=== PATIENT | female | born 1980 | race Hispanic/Latino ===

== ENCOUNTER 2017-12-23 23:00 | Emergency (ER) | payer MEDICAID, OTHER ==
[2017-12-23] MEDS ORDERED: ASPIRIN 325 MG TABLET ONE (23:34)
[2017-12-23 23:38] LABS: BASOPHILS % (AUTO) 0.7 % (0.0-5.0); EOSINOPHILS % (AUTO) 1.3 % (0.0-8.0); HEMATOCRIT 36.3 % (36-48); LYMPHOCYTES % (AUTO) 39.5 % (21.0-51.0); MEAN CORPUSCULAR HEMOGLOBIN 22.8 pg (27.0-33.0); MEAN CORPUSCULAR HGB CONC 31.7 g/dL (32.0-36.0); MEAN CORPUSCULAR VOLUME 71.8 fL (79-99); NEUTROPHILS % (AUTO) 51.5 % (40.0-77.0); PLATELET COUNT (AUTO) 265 K/uL (130-400); RED BLOOD CELL COUNT(AUTO) 5.06 MIL/uL (4.00-5.50); RED CELL DISTRIBUTION WIDTH 18.1 % (11.0-15.5); WHITE BLOOD COUNT (AUTO) 11.8 K/uL (4.8-10.8)
[2017-12-23 23:49] LABS: CREATININE 0.8 mg/dL (0.5-1.5); POTASSIUM 3.5 mmol/L (3.5-5.1)
[2017-12-23 23:50] LABS: INR 1.03 (0.85-1.15); PARTIAL THROMBOPLASTIN TIME 25.3 SEC (26.3-35.5); PROTHROMBIN TIME 10.8 SEC (9.6-11.6)
[2017-12-23 23:54] LABS: ALBUMIN 3.3 g/dL (3.5-5.0); BILIRUBIN,TOTAL 0.2 mg/dL (0.2-1.0); TOTAL PROTEIN, SERUM 8.2 g/dL (6.0-8.3)
[2017-12-24 00:06] LABS: B-TYPE NATRIURETIC PEPTIDE 5 pg/mL (0-100)
== END 2017-12-24 01:33 | disposition home or self-care (01) ==
LOC: EDH 23:00
DX: R07.89 Other chest pain (principal); Z86.73 Personal history of transient ischemic attack (TIA), and cerebral infarction without residual deficits
CPT/HCPCS: 36415; 71045; 80053; 82550; 83880; 84484; 85025; 85610; 85730; 93005; 94761

== ENCOUNTER 2018-06-07 18:20 | Emergency (ER) | payer MEDICAID ==
[2018-06-07 19:12] LABS: APPEARANCE,URINE CLOUDY (CLEAR); BILIRUBIN,URINE NEGATIVE (NEGATIVE); COLOR,URINE YELLOW (YELLOW); GLUCOSE, URINE (UA) NEGATIVE (NEGATIVE); KETONES,URINE NEGATIVE (NEGATIVE); LEUKOCYTE ESTERASE ,URINE MODERATE (NEGATIVE); NITRATE,URINE POSITIVE (NEGATIVE); OCCULT BLOOD,URINE LARGE (NEGATIVE); PROTEIN,URINE 30 (NEGATIVE); UROBILINOGEN,URINE 0.2 mg/dL (0.2-1.0)
[2018-06-07 19:20] LABS: AMPHET/METH SCREEN,URINE NEGATIVE (NEGATIVE); BARBITURATE SCREEN, URINE NEGATIVE (NEGATIVE); BENZODIAZEPINES SCREEN,URINE NEGATIVE (NEGATIVE); CANNABINOID SCREEN,URINE NEGATIVE (NEGATIVE); COCAINE SCREEN,URINE NEGATIVE (NEGATIVE); OPIATE SCREEN,URINE NEGATIVE (NEGATIVE); PHENCYCLIDINE SCREEN,URINE NEGATIVE (NEGATIVE)
[2018-06-07 19:28] LABS: BACTERIA,URINE Many /HPF (None Seen); WBC,URINE 51-100 /HPF (0-1)
[2018-06-07] MEDS ORDERED: LIDOCAINE HCL-MPF 1% 2ML VIAL ONE (19:44)
[2018-06-07] MEDS ORDERED: CEFTRIAXONE SODIUM 1 GM ONE (19:44)
[2018-06-07] MEDS ORDERED: IBUPROFEN 600 MG TABLET ONE (19:45)
== END 2018-06-07 19:59 | disposition home or self-care (01) ==
LOC: EDH 18:20
DX: N39.0 Urinary tract infection, site not specified (principal); R51 Headache; Z90.710 Acquired absence of both cervix and uterus
CPT/HCPCS: 70450; 80305; 81001; 96372; 99285; J0696; J3490

== ENCOUNTER 2018-08-20 17:26 | Emergency (ER) | payer MEDICAID ==
[2018-08-20] MEDS ORDERED: HYDROXYZINE HCL 25 MG TABLET ONE (18:11)
[2018-08-20] MEDS ORDERED: IBUPROFEN 600 MG TABLET ONE (19:53)
== END 2018-08-20 19:03 | disposition home or self-care (01) ==
LOC: EDH 17:26
DX: F41.1 Generalized anxiety disorder (principal); Z90.710 Acquired absence of both cervix and uterus

== ENCOUNTER 2019-04-06 18:48 | Emergency (ER) | payer MEDICAID ==
[2019-04-06 19:29] LABS: BASOPHILS % (AUTO) 0.5 % (0.0-5.0); EOSINOPHILS % (AUTO) 0.7 % (0.0-8.0); HEMATOCRIT 34.8 % (36-48); LYMPHOCYTES % (AUTO) 28.8 % (21.0-51.0); MEAN CORPUSCULAR HEMOGLOBIN 23.5 pg (27.0-33.0); MEAN CORPUSCULAR HGB CONC 31.9 g/dL (32.0-36.0); MEAN CORPUSCULAR VOLUME 73.6 fL (79-99); MONOCYTES % (AUTO) 6.7 % (3.0-13.0); NEUTROPHILS % (AUTO) 63.3 % (40.0-77.0); PLATELET COUNT (AUTO) 307 K/uL (130-400); RED BLOOD CELL COUNT(AUTO) 4.72 MIL/uL (4.00-5.50); RED CELL DISTRIBUTION WIDTH 16.5 % (11.0-15.5); WHITE BLOOD COUNT (AUTO) 13.2 K/uL (4.8-10.8)
[2019-04-06 19:29] LABS: APPEARANCE,URINE CLOUDY (CLEAR); BILIRUBIN,URINE NEGATIVE (NEGATIVE); COLOR,URINE YELLOW (YELLOW); GLUCOSE, URINE (UA) NEGATIVE (NEGATIVE); KETONES,URINE NEGATIVE (NEGATIVE); LEUKOCYTE ESTERASE ,URINE MODERATE (NEGATIVE); NITRATE,URINE POSITIVE (NEGATIVE); OCCULT BLOOD,URINE LARGE (NEGATIVE); PROTEIN,URINE 30 mg/dL (NEGATIVE); UROBILINOGEN,URINE 0.2 mg/dL (0.2-1.0)
[2019-04-06 19:32] LABS: HCG,QUAL RESULT NEGATIVE (NEGATIVE)
[2019-04-06 19:35] LABS: BACTERIA,URINE Many /HPF (None Seen); CALCIUM OXALATE CRYSTALS,UR Few /LPF (None Seen); MUCUS,URINE Few LPF (None Seen)
[2019-04-06 19:41] LABS: POTASSIUM 3.5 mmol/L (3.5-5.1)
[2019-04-06 19:45] LABS: ALBUMIN 3.3 g/dL (3.5-5.0); BILIRUBIN,TOTAL 0.2 mg/dL (0.2-1.0); TOTAL PROTEIN, SERUM 7.8 g/dL (6.0-8.3)
[2019-04-06] MEDS ORDERED: ONDANSETRON ODT 4 MG TAB ONE (19:57)
[2019-04-06] MEDS ORDERED: ONDANSETRON HCL 4 MG/2 ML VIAL ONE (20:10)
[2019-04-06] MEDS ORDERED: KETOROLAC TROMETHAMINE 15MG/ML ONE (20:11)
[2019-04-06] MEDS ORDERED: CEFTRIAXONE SODIUM 1 GM ONE (20:11)
== END 2019-04-06 22:25 | disposition home or self-care (01) ==
LOC: EDH 18:48
DX: N39.0 Urinary tract infection, site not specified (principal); F41.9 Anxiety disorder, unspecified; F32.9 Major depressive disorder, single episode, unspecified; Z91.018 Allergy to other foods
CPT/HCPCS: 36415; 80053; 81001; 81025; 82150; 83690; 85025; 96374; 96375; 99284; J0696; J1885; J2405

== ENCOUNTER 2021-06-07 08:20 | Emergency (ER) | payer MEDICAID, OTHER ==
[~2021-06-07] VITALS: Ht 162.6 cm; Wt 74.8 kg
[2021-06-07] MEDS ORDERED: 0.9%NACL 1000ML 1,000 ML IV STA (08:31)
[2021-06-07] MEDS ORDERED: KETOROLAC 30MG VIAL (30MG/ML) IV ONE (09:00)
[2021-06-07] MEDS ORDERED: ONDANSETRON 4MG INJ IVP ONE ×2 (09:00→11:30)
[2021-06-07 09:14] LABS: APPEARANCE,URINE TURBID (CLEAR); BILIRUBIN,URINE SMALL (NEGATIVE); COLOR,URINE RED (YELLOW); GLUCOSE, URINE (UA) NEGATIVE (NEGATIVE); KETONES,URINE 5 mg/dL (NEGATIVE); LEUKOCYTE ESTERASE ,URINE MODERATE (NEGATIVE); NITRATE,URINE NEGATIVE (NEGATIVE); OCCULT BLOOD,URINE LARGE (NEGATIVE); PH,URINE 7.5 (5.0-8.0); PROTEIN,URINE 100 mg/dL (NEGATIVE)
[2021-06-07 09:18] LABS: BASOPHILS % (AUTO) 0.2 % (0.0-5.0); HEMATOCRIT 34.2 % (36-48); LYMPHOCYTES % (AUTO) 27.4 % (21.0-51.0); MEAN CORPUSCULAR HEMOGLOBIN 22.2 pg (27.0-33.0); MEAN CORPUSCULAR HGB CONC 30.7 g/dL (32.0-36.0); MEAN CORPUSCULAR VOLUME 72.3 fL (79-99); MONOCYTES % (AUTO) 6.9 % (3.0-13.0); PLATELET COUNT (AUTO) 263 K/uL (130-400); RED BLOOD CELL COUNT(AUTO) 4.73 MIL/uL (4.00-5.50); RED CELL DISTRIBUTION WIDTH 15.7 % (11.0-15.5); WHITE BLOOD COUNT (AUTO) 6.1 K/uL (4.8-10.8)
[2021-06-07 09:27] LABS: CREATININE 0.8 mg/dL (0.5-1.5); POTASSIUM 3.7 mmol/L (3.5-5.1)
[2021-06-07 09:29] LABS: RBC,URINE TNTC /HPF (0-1)
[2021-06-07 09:30] LABS: BACTERIA,URINE Rare /HPF (None Seen); SQUAMOUS EPITHELIAL CELL,UR Rare /HPF (0-2); YEAST,URINE BUDDING Rare /HPF (None Seen)
[2021-06-07] MEDS ORDERED: TRIAMCINOLONE ACETONIDE 40 MG/ML 1ML VIAL INJ SCH (10:00)
[2021-06-07] MEDS ORDERED: BUPIVACAINE/PF 0.5% 10ML VIAL IJ SCH (10:00)
[2021-06-07] MEDS ORDERED: BUPIVACAINE/PF 0.5% 30ML VIAL ONE (10:18)
[2021-06-07] MEDS ORDERED: ORPHENADRINE CITRATE 30 MG/ML ML ONE (10:35)
[2021-06-07] MEDS ORDERED: ORPHENADRINE CITRATE 30 MG/ML ML IV SCH (11:00)
[2021-06-07] MEDS ORDERED: MORPHINE 2 MG SYG IVP SCH (11:30)
[2021-06-07] MEDS ORDERED: MORPHINE 4 MG SYG IV ONE (11:30)
[2021-06-07] MEDS ORDERED: UNASYN 3GM VIAL IV SCH (11:58)
[2021-06-07] MEDS ORDERED: GENTAMICIN SULFATE 80 MG/2 ML VIAL IV SCH (12:00)
[2021-06-07] MEDS ORDERED: MORPHINE 4 MG SYG IM SCH (14:00)
[2021-06-07] MEDS ORDERED: 0.9%NACL 100ML 100 ML ONE (14:17)
[2021-06-07] MEDS ORDERED: AMOX-429 PO (14:37)
[2021-06-07] MEDS: MORPHINE 4 MG SYG IVP SCH ×2 (14:49→14:54)
[2021-06-07 15:29] VITALS: BP 107/64
== END 2021-06-07 15:44 | disposition home or self-care (01) ==
LOC: EDH 08:20
DX: U07.1 COVID-19 (principal); N39.0 Urinary tract infection, site not specified; N20.0 Calculus of kidney; B96.4 Proteus (mirabilis) (morganii) as the cause of diseases classified elsewhere; G43.909 Migraine, unspecified, not intractable, without status migrainosus; M54.2 Cervicalgia; Z88.8 Allergy status to other drugs, medicaments and biological substances
CPT/HCPCS: 20552; 36415; 70450; 74176; 80048; 81001; 85025; 87088; 87635; 96361; 96365; 96366; 96367; 96375; 96376; 99285; C9803; J0295; J1885; J2270; J2360; J2405 ×2; J3301; J3490 ×2

== ENCOUNTER 2023-07-10 16:47 | Emergency (ER) | payer OTHER ==
[~2023-07-10] VITALS: Ht 162.6 cm; Wt 95.3 kg
[~2023-07-10 16:47] MED LIST: AMOX-429 PO
[2023-07-10 17:33] LABS: APPEARANCE,URINE TURBID (CLEAR); BILIRUBIN,URINE NEGATIVE (NEGATIVE); COLOR,URINE LIGHT-ORANGE (YELLOW); GLUCOSE, URINE (UA) NEGATIVE (NEGATIVE); KETONES,URINE NEGATIVE (NEGATIVE); LEUKOCYTE ESTERASE ,URINE 500 Leu/uL (NEGATIVE); NITRATE,URINE NEGATIVE (NEGATIVE); OCCULT BLOOD,URINE LARGE (NEGATIVE); PROTEIN,URINE 200 mg/dL (NEGATIVE); UROBILINOGEN,URINE 0.2 mg/dL (0.2-1.0)
[2023-07-10 17:46] LABS: ADD UA MICROSCOPIC YES
[2023-07-10 17:47] LABS: BACTERIA,URINE MOD /HPF (None Seen); MUCUS,URINE RARE LPF (None Seen); RBC,URINE TNTC /HPF (0-1); SQUAMOUS EPITHELIAL CELL,UR MANY /HPF (0-2); WBC CLUMP MANY /HPF (0-1); WBC,URINE TNTC /HPF (0-1)
[2023-07-10] MEDS ORDERED: ONDANSETRON 4MG INJ IVP ONE (20:00)
[2023-07-10] MEDS ORDERED: CEFTRIAXONE 1G VIAL IVPB ONE (20:00)
[2023-07-10] MEDS ORDERED: KETOROLAC 15MG/ML VIAL (15MG/ML) IV ONE (20:00)
[2023-07-10] MEDS ORDERED: LACTATED RINGERS 1000ML 1,000 ML IV ONE (20:00)
[2023-07-10 20:30] LABS: BASOPHILS # (AUTO) 0.04 K/uL (0.00-0.20); BASOPHILS % (AUTO) 0.4 % (0.0-5.0); EOSINOPHILS # (AUTO) 0.12 K/uL (0.00-0.70); EOSINOPHILS % (AUTO) 1.2 % (0.0-8.0); HEMATOCRIT 37.3 % (36-48); IMMATURE GRANULOCYTE ABSOLUTE 0.04 K/uL (0-1); LYMPHOCYTES # (AUTO) 3.1 K/uL (1.0-4.8); MEAN CORPUSCULAR HEMOGLOBIN 24.4 pg (27.0-33.0); MEAN CORPUSCULAR HGB CONC 31.6 g/dL (32.0-36.0); MEAN CORPUSCULAR VOLUME 77.2 fL (79-99); MONOCYTES # (AUTO) 0.9 K/uL (0.1-1.0); MONOCYTES % (AUTO) 8.3 % (3.0-13.0); NEUTROPHILS # (AUTO) 6.2 K/uL (1.8-7.7); NEUTROPHILS % (AUTO) 59.7 % (40.0-77.0); PLATELET COUNT (AUTO) 303 K/uL (130-400); RED BLOOD CELL COUNT(AUTO) 4.83 MIL/uL (4.00-5.50); RED CELL DISTRIBUTION WIDTH 15.2 % (11.0-15.5); WHITE BLOOD COUNT (AUTO) 10.4 K/uL (4.8-10.8)
[2023-07-10 20:40] LABS: CREATININE 0.7 mg/dL (0.5-1.5); POTASSIUM 3.1 mmol/L (3.5-5.1)
[2023-07-10 20:44] LABS: ALBUMIN 3.4 g/dL (3.5-5.0); BILIRUBIN,TOTAL 0.2 mg/dL (0.2-1.0); TOTAL PROTEIN, SERUM 8.2 g/dL (6.0-8.3)
[2023-07-10 23:34] VITALS: BP 132/82; PULSE 82; RESP 18; O2SAT 99
[2023-07-11] MEDS ORDERED: CEPH500B PO (00:47)
[2023-07-11] MEDS ORDERED: KETO10 PO (00:47)
[2023-07-11] MEDS ORDERED: ONDA4TAB10 PO (00:47)
[2023-07-11] MEDS ORDERED: KETOROLAC 15MG/ML VIAL (15MG/ML) IV ONE (01:00)
== END 2023-07-11 01:02 | disposition home or self-care (01) ==
LOC: EDH 16:47
DX: N20.0 Calculus of kidney (principal); Z90.49 Acquired absence of other specified parts of digestive tract
CPT/HCPCS: 99285; 74176; 96365; 96375; 96366; 80053; 85025; 87088; 81001; 36415; 96376; J7120; J0696; J2405; J1885 ×2

== ENCOUNTER 2025-06-17 17:30 | Emergency (ER) | payer MEDICAID, OTHER ==
[~2025-06-17] VITALS: Ht 162.6 cm; Wt 65.8 kg
[~2025-06-17 17:30] MED LIST changes: +AMOX1TAB16 PO; +CEPH500B PO; +IBUP-2077 PO; +KETO10 PO; +ONDA-243 PO; +PHEN-776 PO
[2025-06-17 17:33] VITALS: BP 110/69; PULSE 86; RESP 18; TEMP 98.7
--- NOTE | 2025-06-17 17:52 | ERN ---
General Chief Complaint: Upper Extremity Pain/Injury Stated Complaint: RIGHT UPPER EXTREMITY PAIN Time Seen by MD: 17:32 Source: patient History of Present Illness Initial Comments Patient is a 45-year-old coming in to be evaluated for right shoulder pain. Patient states that she has a very physical job and yesterday noticed a sharp pain in her right shoulder and layer a traveled down her right elbow region. She is able to move her arm but has some discomfort. Allergies: Coded Allergies: plum (Unverified Allergy, Unknown, 04/06/19) Home Meds Active Scripts Phenazopyridine HCl (Pyridium) 200 Mg Tablet, 200 MG PO TID for painful urination for 5 Days, #15 TAB 0 Refills Prov:GINO BERGMAN [employer]CIAL [employer] 02/06/24 Ibuprofen (Ibuprofen 800 mg Tab) 800 Mg Tab, 800 MG PO Q8H PRN for fever or pain, #30 TAB 0 Refills Prov:GINO BERGMAN COMMERCIAL DECORATOR 02/06/24 Amoxicillin/Potassium Clav (Amox Tr-K Clv 875-125 mg Tab) 875 Mg-125 Mg Tablet, 1 EACH PO BID for 7 Days, #14 TAB 0 Refills Prov:GINO BERGMAN COMMERCIAL DECORATOR 02/06/24 Ondansetron (Ondansetron Odt) 4 Mg Tab.rapdis, 4 MG PO Q12H, #10 TAB Prov:DEVON EARLY 07/11/23 Cephalexin Monohydrate (Keflex) 500 Mg Cap, 500 MG PO TID for 7 Days, #21 CAP Prov:DEVON EARLY 07/11/23 Ketorolac Tromethamine (Toradol) 10 Mg Tab, 10 MG PO TID, #12 TAB Prov:DEVON EARLY 07/11/23 Amoxicillin/Potassium Clav (Augmentin 875-125 Tablet) 1 Each Tablet, 1 TAB PO BID for 10 Days, #20 TAB 0 Refills Prov:WERO REED MD 06/07/21 Past Medical History Past Medical History: Other Medical History Other: KIDNEY STONES Past Surgical History: Hysterectomy Surgical History Other: uretal stent Female( History) History: Not Applicable ROS Dictation CONSTITUTIONAL: No chills, no fever, no weakness, no diaphoresis, no malaise. HEAD/FACE: No signs of trauma. EENT: No eye pain, no blurred vision, no tearing, no double vision, no ear pain, no ear discharge, no nose pain, no nasal congestion, no throat pain, no throat swelling, no mouth pain. RESPIRATORY: No cough, no orthopnea, no SOB, no stridor, no wheezing. CARDIOVASCULAR: No chest pain, no edema, no palpitations, no syncope. GASTROINTESTINAL/ABDOMINAL: No abdominal pain, no constipation, no diarrhea, no nausea, no vomiting. GENITOURINARY: No abnormal discharge, no dysuria, no frequent urination, no hematuria. No complaints of pain in the genitals. MUSCULOSKELETAL: No back pain, no gout, no joint pain, no joint swelling, muscle pain, no muscle stiffness, no neck pain. INTEGUMENTARY: No change in color, no change in hair/nails, no dryness, no lesion, no lumps, no rash. NEUROLOGICAL/PSYCH: No anxiety, not depressed, no emotional problem, no headache, no numbness, no pre-existing deficit, no history of seizures, no tremors, no weakness. HEMATOLOGIC/LYMPHATIC: Not anemic, no history of blood clots, no apparent bleeding, no bruising, glands not swollen. All Systems Negative, Except as Noted. Physical Exam Physical Exam Dictation VITAL SIGNS: Reviewed. GENERAL APPEARANCE: Alert, oriented x3, no acute distress, obese. HEAD AND FACE: Non-traumatic. EYES: PERRL, pink conjunctivas, eyelid no trauma, anterior chamber clear. EARS: Pinnas intact and no signs of trauma or erythema. Ear canals clear and no discharge. TMs no erythema. NOSE: No discharge, no bleeding. OROPHARYNX: Mouth normal, teeth no caries, tongue pink. Pharynx clear, no erythema. Tonsils no exudates, no abscesses noted. Mucous membrane moist. NECK: Supple, non-tender, no thyromegaly, no masses, no JVD, no bruits. BREAST: Deferred. CHEST: No tenderness, no crepitus, no paradoxical movement, no retractions. LUNGS: Clear, well-ventilated, symmetric, no rales, no wheezing, no rhonchi, no stridor, good breath sounds bilaterally. HEART: Regular rate, regular rhythm, no murmur, no gallops. VASCULAR: No peripheral edema. ABDOMEN: Soft, positive bowel sounds, nondistended, no guarding, nontender, no rebound, no masses no hepatomegaly, no splenomegaly, no Carrera's sign, no hernias. RECTAL: Deferred. GENITAL: Deferred. NEUROLOGICAL: Normal speech, gross motor function intact, gross sensory function intact. MUSCULOSKELETAL: Neck nontender, full range of motion, back nontender, full range of motion. EXTREMITIES: Nontender, full range of motion. Right shoulder pain on palpation SKIN: Color pink, dry, no turgor, no rash, no lacerations, no abrasions, no contusions. LYMPHATICS: Deferred. Results Laboratory and Microbiology Labs Reviewed?: Yes MDM MDM: Differential diagnosis: Rotator cuff strain, shoulder pain, Rationale: Tests considered and ordered secondary to shared decision making include: Previous outside records reviewed: Old ER visits. Risk of complication and/or morbidity or mortality of patient management: None Medications-Per medication reconciliation Need for hospitalization: Patient does not meet criteria for hospitalization. Need for emergency major/minor surgery: No Patient is a 45-year-old female coming in complaining of right shoulder pain. On physical exam that has tenderness to the right deltoid region. No deformity noted. A sling was placed I did advised her appropriate follow up with the PCP and appropriate resting of right shoulder pain. ED Course Orders Procedure Category Date Status Time Sling RUPA 06/17/25 In Process 17:46 Acetaminophen 500mg PHA 06/17/25 In Process Tab (Tylenol 500mg T 18:00 Ketorolac PHA 06/17/25 Complete Tromethamine 15mg/Ml 17:57 Current Medications Medications (Trade) Dose Ordered Sig/Malaika Route PRN Reason Start Time Stop Time Status Last Admin Dose Admin Acetaminophen (TYLenol 500MG TAB) 500 mg ONCE ONCE PO 06/17/25 18:00 06/17/25 18:01 Ketorolac Tromethamine (toRADol) 15 mg STK-MED ONCE .ROUTE 06/17/25 17:57 06/17/25 17:57 DC Vital Signs Date Time Temp Pulse Resp B/P (MAP) Pulse Ox O2 Delivery O2 Flow Rate FiO2 06/17/25 17:33 98.8 86 18 110/69 97 Room Air 0 DX & DISP Disposition: Discharge Departure Impression: Primary Impression: Right shoulder strain Condition: Stable Scripts Naproxen (Naproxen) 375 Mg Tablet. 375 MG PO BID for 7 Days, #14 TAB Prov: DEBBY FERREIRA MD 06/17/25 Additional Instructions: FOLLOW-UP WITH PRIMARY CARE PROVIDER IN 1 TO 2 DAYS. TAKE MEDICATIONS DIRECTED HERE IN THE EMERGENCY ROOM. OKAY TO CONTINUE HOME MEDICATIONS UNLESS OTHERWISE DISCUSSED DURING YOUR VISIT IN THE EMERGENCY ROOM TODAY. RETURN TO YOUR NEAREST EMERGENCY ROOM IF SYMPTOMS WORSEN OR IF THERE IS NO IMPROVEMENT. CALL 911 IF YOU NEED IMMEDIATE ASSISTANCE. TAKE TYLENOL [id number] NEEDED AND IF NO CONTRAINDICATIONS ARE PRESENT. INCREASE ORAL HYDRATION. A WOUND CULTURE OR URINE CULTURE WAS ORDERED HERE IN THE EMERGENCY ROOM DEPARTMENT PLEASE FOLLOW-UP WITH PRIMARY CARE PROVIDER AND ADVISE THEM TO GET REPORTS FROM OUR FACILITY. IF YOU HAD ANY SERENA WRAP/SPLINTS THAT WERE APPLIED HERE, PLEASE DO NOT REMOVE THEM UNTIL YOU SEE YOUR PRIMARY CARE OR SPECIALTY. Referrals: Referrals: SELF,REFERRAL (PCP) SHANNAN SIMON MD Time of Disposition: 18:00 DEBBY FERREIRA MD Jun 17, 2025 17:52
[2025-06-17] MEDS ORDERED: NAPR-1505 PO (18:01)
--- NOTE | 2025-06-17 18:02 | NUR ---
APPLIED SLING TO RUE.
== END 2025-06-17 18:30 | disposition home or self-care (01) ==
LOC: EDH 17:30
DX: S46.911A Strain of unspecified muscle, fascia and tendon at shoulder and upper arm level, right arm, initial encounter (principal); Z91.018 Allergy to other foods; Z79.1 Long term (current) use of non-steroidal anti-inflammatories (NSAID); Z87.442 Personal history of urinary calculi; Z90.710 Acquired absence of both cervix and uterus
CPT/HCPCS: 99283; 96372; J1885